=== PATIENT | male | born 1945 | race Caucasian/White ===

== ENCOUNTER 2016-12-20 11:55 | Inpatient (IN) | payer OTHER ==
[~2016-12-20] VITALS: Ht 170.2 cm; Wt 99.2 kg
[~2016-12-20 11:55] MED LIST: ALBU8.5H5 INH; AMLO10TA4 PO; ASPI325T4 PO; ATOR10TA PO; BECL8.7A6 INH; CETI10TA32 PO; CLON0.2T PO; DIVA125T2 PO; DIVA500T9 PO; GLIP10TA13 PO; LAMO100T5 PO; LISI-167 PO; MAGN400O4 PO; MECL25TA4 PO; METF10002 PO; METH479P PO; NPH,100V SQ; NPH,100V SQ-INSULIN; NPH,100V4 SQ; SENN1TAB94 PO; TEMA15CA6 PO; VARD10TA4 PO; ZIPR60CA3 PO
[2016-12-20] MEDS ORDERED: MECLIZINE CHEWABLE 25 MG TAB PO ONE (12:30)
[2016-12-20] MEDS ORDERED: SODIUM CHLORIDE 0.9% 1,000ML IVBOLUS ONE (12:30)
[2016-12-20] MEDS ORDERED: SODIUM CHLORIDE FLUSH 10ML SYR IVF ONE (12:30)
[2016-12-20] MEDS ORDERED: ONDANSETRON 2MG/ML, 2ML IVPush ONE (12:30)
[2016-12-20 12:43] LABS: HEMOGLOBIN 15.6 g/dL (13.7-18.0)
[2016-12-20] MEDS ORDERED: MECLIZINE CHEWABLE 25 MG TAB ONE (12:50)
[2016-12-20] MEDS ORDERED: ONDANSETRON 2MG/ML, 2ML ONE (12:50)
[2016-12-20 12:53] LABS: ASPARTATE AMINO TRANSFERASE 25 U/L (15-37); BLOOD UREA NITROGEN 15 mg/dL (7-18)
[2016-12-20 13:04] LABS: IS PT STATUS REG ER OR PRE ER? YES
[2016-12-20] MEDS ORDERED: INSU100C BC (13:56)
[2016-12-20] MEDS ORDERED: BISACODYL 10 MG SUPP PR PRN (14:00)
[2016-12-20] MEDS ORDERED: HYDROcodone/APAP 5/325 TABLET PO PRN (14:00)
[2016-12-20] MEDS ORDERED: ONDANSETRON 2MG/ML, 2ML IVP PRN (14:00)
[2016-12-20] MEDS ORDERED: DEXTROSE 50%, 50ML SYRINGE IVPush PRN (14:00)
[2016-12-20] MEDS ORDERED: POLYETHYLENE GLYCOL 17 GM PACKET PO PRN (14:00)
[2016-12-20] MEDS ORDERED: ACETAMINOPHEN 325 MG TABLET PO PRN (14:00)
[2016-12-20] MEDS ORDERED: PROMETHAZINE 25 MG/ML, 1ML IM PRN (14:00)
[2016-12-20] MEDS ORDERED: DEXTROSE 4 GM TAB.CHEW PO PRN (14:00)
[2016-12-20] MEDS ORDERED: GLUCAGON 1 MG IM PRN (14:00)
[2016-12-20] MEDS ORDERED: PHARMACY MAY ADJ FOR RENAL FX MC PRN (14:00)
[2016-12-20] MEDS ORDERED: TEMAZEPAM 15 MG CAPSULE PO PRN (14:30)
[2016-12-20] MEDS ORDERED: TEMAZEPAM MC SCH (15:30)
[2016-12-20] MEDS ORDERED: METFORMIN MC SCH (15:30)
[2016-12-20] MEDS: SODIUM CHLORIDE 0.9% 1,000 ML IV SCH ×2 (15:55→23:37)
[2016-12-20] MEDS: ENOXAPARIN 40 MG/0.4 ML SQ SCH (15:56)
[2016-12-20] MEDS: INSULIN ASPART 100 UNITS/ML, PEN SQ-INSULIN SCH ×2 (16:00→21:00)
[2016-12-20] MEDS: MECLIZINE CHEWABLE 25 MG TAB PO SCH ×2 (16:05→21:54)
[2016-12-20] MEDS: LAMOTRIGINE 100 MG TABLET PO SCH ×2 (16:05→21:58)
[2016-12-20 17:57] VITALS: BP 132/72
[2016-12-20 18:46] LABS: IS PT STATUS REG ER OR PRE ER? NO
[2016-12-20 19:23] VITALS: BP 123/70
[2016-12-20] MEDS: metFORMIN 500 MG TABLET PO SCH (21:00)
[2016-12-20] MEDS ORDERED: CETIRIZINE 10 MG TABLET PO SCH (21:00)
[2016-12-20] MEDS ORDERED: metFORMIN 500 MG TABLET PO SCH (21:00)
[2016-12-20] MEDS ORDERED: DIVALPROEX 500 MG TAB.ER.24H PO SCH (21:00)
[2016-12-20] MEDS ORDERED: ATORVASTATIN 10 MG TABLET PO SCH (21:00)
[2016-12-20] MEDS: SODIUM CHLORIDE FLUSH 10ML SYR IVF SCH (21:59)
[2016-12-21 00:44] LABS: IS PT STATUS REG ER OR PRE ER? NO
[2016-12-21 01:27] VITALS: BP 150/74
[2016-12-21 05:29] LABS: BLOOD UREA NITROGEN 19 mg/dL (7-18)
[2016-12-21 05:34] LABS: ASPARTATE AMINO TRANSFERASE 39 U/L (15-37)
[2016-12-21 06:05] LABS: HEMOGLOBIN 13.9 g/dL (13.7-18.0)
[2016-12-21] MEDS: INSULIN ASPART 100 UNITS/ML, PEN SQ-INSULIN SCH ×2 (07:00→11:00)
[2016-12-21 07:02] VITALS: BP_SYST 121; BP_SYST 133; BP_SYST 135; BP_DIAS 72; BP_DIAS 77
[2016-12-21] MEDS: MECLIZINE CHEWABLE 25 MG TAB PO SCH (07:38)
[2016-12-21] MEDS: LAMOTRIGINE 100 MG TABLET PO SCH (07:38)
[2016-12-21] MEDS: metFORMIN 500 MG TABLET PO SCH (07:38)
[2016-12-21] MEDS: SODIUM CHLORIDE FLUSH 10ML SYR IVF SCH (07:40)
[2016-12-21] MEDS ORDERED: LISINOPRIL 10 MG TABLET PO SCH (09:00)
[2016-12-21] MEDS ORDERED: ASPIRIN 325 MG TABLET PO SCH (09:00)
[2016-12-21] MEDS ORDERED: AMLODIPINE 5 MG TABLET PO SCH (09:00)
[2016-12-21] MEDS: SODIUM CHLORIDE 0.9% 1,000 ML IV SCH (12:00)
[2016-12-21 13:20] VITALS: BP_SYST 139; BP_SYST 147; BP_SYST 157; BP_DIAS 69; BP_DIAS 82
[2016-12-21] MEDS: ENOXAPARIN 40 MG/0.4 ML SQ SCH (14:00)
== END 2016-12-21 14:57 | disposition home or self-care (01) | DRG 74 ==
LOC: ED 13:27 → EDIP 13:29 → SUATTDRO 13:31 → ED 13:55 → 4EST 14:55 → DCLOUNGE 12-21 14:56
PROVIDERS: ADMIT Internal Medicine; ATTEND Internal Medicine
DX: G90.8 Other disorders of autonomic nervous system (principal); N17.9 Acute kidney failure, unspecified; F30.9 Manic episode, unspecified; D72.829 Elevated white blood cell count, unspecified; I10 Essential (primary) hypertension; E78.5 Hyperlipidemia, unspecified; G47.30 Sleep apnea, unspecified; J45.909 Unspecified asthma, uncomplicated; I12.9 Hypertensive chronic kidney disease with stage 1 through stage 4 chronic kidney disease, or unspecified chronic kidney disease; E11.22 Type 2 diabetes mellitus with diabetic chronic kidney disease; N18.9 Chronic kidney disease, unspecified; Z82.3 Family history of stroke; Z90.89 Acquired absence of other organs
CPT/HCPCS: 36415; 70551; 71010; 80053; 81003; 82962; 83880; 84443; 84484; 85025; 85610; 85730; 93005; 96361; 96374; J1650; J2405; J7030

== ENCOUNTER → 2017-02-23 | Outpatient (CLI) | payer OTHER ==
[~2017-02-23] MED LIST changes: +ACET-1600 PO; +AMLO10TA2 PO; +ASPI325T80 PO; +BISM262O20 PO; +CPAP; +DEXT4TAB PO; +DIPH25CA61 PO; +DIVA250T6 PO; +DOCU100C8 PO; +EPIN0.3P3 IM; +FAMO-79 PO; +FAMO40TA61 PO; +INSU100C BC; +INSU100C5 SQ-INSULIN; +LAMO100T PO; +MECL-76 PO; +METF500T4 PO; +PSYL0.527 PO; +REGADENOSON 0.4 MG/5 ML SYRINGE ONE; +TEMA7.5C PO; +[UNRECOGNIZED DRUG - OTHER] PO
== END | disposition home or self-care (01) ==
LOC: CFH 07:26
PROVIDERS: ATTEND Internal Medicine Cardiovascular Disease
DX: I25.9 Chronic ischemic heart disease, unspecified (principal); R94.31 Abnormal electrocardiogram [ECG] [EKG]
CPT/HCPCS: 78452; 93017; A9502; J2785

== ENCOUNTER 2017-03-30 09:15 | Observation (INO) | payer OTHER ==
[2017-03-29 10:24] LABS: BLOOD UREA NITROGEN 23 mg/dL (7-18)
[~2017-03-30] VITALS: Ht 170.2 cm; Wt 102.7 kg
[~2017-03-30 09:15] MED LIST changes: +DIVA-68 PO; +DIVA500T17 PO; -DIVA500T9 PO; +LOPE2TAB28 PO; -REGADENOSON 0.4 MG/5 ML SYRINGE ONE; +TEMA15CA PO
[2017-03-30 09:55] VITALS: BP 163/94
[2017-03-30] MEDS: SODIUM CHLORIDE 0.9% 1,000 ML IV SCH ×2 (10:16→20:00)
[2017-03-30] MEDS ORDERED: ASPIRIN 325 MG TABLET EC PO ONE (10:30)
[2017-03-30] MEDS ORDERED: BISACODYL 5 MG EC TABLET PO PRN (10:30)
[2017-03-30] MEDS ORDERED: BISACODYL 10 MG SUPP PR PRN (10:30)
[2017-03-30] MEDS ORDERED: ZOLPIDEM 5MG TABLET PO PRN (10:30)
[2017-03-30] MEDS ORDERED: ACETAMINOPHEN 325 MG TABLET PO PRN (10:30)
[2017-03-30] MEDS ORDERED: ONDANSETRON 2MG/ML, 2ML IVPush PRN (10:30)
[2017-03-30] MEDS ORDERED: MIDAZOLAM 1 MG/ML, 5ML ONE (10:46)
[2017-03-30] MEDS ORDERED: DIPHENHYDRAMINE 50 MG/ML, 1ML ONE (10:46)
[2017-03-30] MEDS ORDERED: LIDOCAINE 2%, 20ML ONE (10:46)
[2017-03-30] MEDS ORDERED: methylPREDNISolone SOD SUCC 125 MG/2 ML ONE (10:46)
[2017-03-30] MEDS ORDERED: FENTANYL PF 100 MCG/2ML ONE (10:46)
[2017-03-30] MEDS ORDERED: HEPARIN 1,000 UNITS/ML, 10ML ONE (12:11)
[2017-03-30] MEDS ORDERED: BIVALIRUDIN 250 MG ONE ×2 (12:11→13:09)
[2017-03-30] MEDS ORDERED: TICAGRELOR 90 MG TABLET ONE (12:11)
[2017-03-30] MEDS ORDERED: hydrALAzine 20 MG/ML, 1ML ONE (12:34)
[2017-03-30] MEDS ORDERED: NITROGLYCERIN 5 MG/ML, 10ML ONE (13:00)
[2017-03-30] MEDS ORDERED: LOPERAMIDE 2 MG CAPSULE PO PRN (14:30)
[2017-03-30] MEDS ORDERED: FAMOTIDINE 20 MG TABLET PO PRN (14:30)
[2017-03-30] MEDS ORDERED: ALBUTEROL SULFATE 2.5 MG/3 ML HHN PRN (14:30)
[2017-03-30] MEDS ORDERED: SENNA/DOCUSATE TABLET PO PRN (14:30)
[2017-03-30] MEDS: DOCUSATE 100 MG CAPSULE PO SCH ×2 (16:00→21:14)
[2017-03-30 16:04] VITALS: BP 136/72
[2017-03-30] MEDS ORDERED: morphine SULFATE 10 MG/ML, 1ML IVPush PRN (18:00)
[2017-03-30] MEDS: OXYcodone/APAP 5/325MG TABLET PO PRN (18:16)
[2017-03-30 19:05] VITALS: BP 142/65
[2017-03-30] MEDS ORDERED: CETIRIZINE 10 MG TABLET PO SCH (21:00)
[2017-03-30] MEDS ORDERED: TEMAZEPAM 15 MG CAPSULE PO SCH (21:00)
[2017-03-30] MEDS ORDERED: ATORVASTATIN 10 MG TABLET PO SCH (21:00)
[2017-03-30] MEDS ORDERED: DIVALPROEX 500 MG TAB.ER.24H PO SCH (21:00)
[2017-03-30] MEDS: PSYLLIUM PACKET PO SCH (21:14)
[2017-03-30] MEDS: TICAGRELOR 90 MG TABLET PO SCH (21:14)
[2017-03-30] MEDS: MECLIZINE CHEWABLE 25 MG TAB PO SCH (21:14)
[2017-03-30] MEDS: LAMOTRIGINE 100 MG TABLET PO SCH (21:14)
[2017-03-30] MEDS: INSULIN ASPART 100 UNITS/ML, PEN SQ-INSULIN SCH (23:31)
[2017-03-31] MEDS: OXYcodone/APAP 5/325MG TABLET PO PRN ×2 (01:10→09:33)
[2017-03-31 02:00] VITALS: BP 149/61
[2017-03-31] MEDS: SODIUM CHLORIDE 0.9% 1,000 ML IV SCH ×2 (02:40→09:20)
[2017-03-31 05:58] LABS: BLOOD UREA NITROGEN 20 mg/dL (7-18)
[2017-03-31] MEDS: INSULIN ASPART 100 UNITS/ML, PEN SQ-INSULIN SCH ×2 (07:00→11:00)
[2017-03-31 08:00] VITALS: BP 155/76
[2017-03-31] MEDS ORDERED: AMLODIPINE 5 MG TABLET PO SCH (09:00)
[2017-03-31] MEDS ORDERED: FLUTICASONE FUROATE 100MCG/INH INH SCH (09:00)
[2017-03-31] MEDS ORDERED: MULTIVITAMIN 1 TABLET PO SCH (09:00)
[2017-03-31] MEDS ORDERED: ASPIRIN 81 MG TABLET EC PO SCH (09:00)
[2017-03-31] MEDS ORDERED: LISINOPRIL 10 MG TABLET PO SCH (09:00)
[2017-03-31] MEDS: DOCUSATE 100 MG CAPSULE PO SCH (09:20)
[2017-03-31] MEDS: MECLIZINE CHEWABLE 25 MG TAB PO SCH (09:20)
[2017-03-31] MEDS: TICAGRELOR 90 MG TABLET PO SCH (09:20)
[2017-03-31] MEDS: PSYLLIUM PACKET PO SCH (09:21)
[2017-03-31] MEDS: LAMOTRIGINE 100 MG TABLET PO SCH (09:21)
[2017-03-31] MEDS ORDERED: MORPHINE SULFATE 4 MG/ML, 1ML IVPush ONE (09:30)
[2017-03-31] MEDS ORDERED: TICA90TA PO (14:07)
[2017-03-31] MEDS ORDERED: ASPI-621 PO (14:07)
== END 2017-03-31 16:50 | disposition home or self-care (01) ==
LOC: CACL 09:15 → 5SO 14:03 → CACL 22:06 → DCLOUNGE 03-31 15:53
PROVIDERS: ADMIT Internal Medicine Cardiovascular Disease; ATTEND Internal Medicine Cardiovascular Disease
DX: I25.10 Atherosclerotic heart disease of native coronary artery without angina pectoris (principal); E11.9 Type 2 diabetes mellitus without complications; E66.01 Morbid (severe) obesity due to excess calories; E78.5 Hyperlipidemia, unspecified; F31.9 Bipolar disorder, unspecified; G47.30 Sleep apnea, unspecified; I10 Essential (primary) hypertension; R94.31 Abnormal electrocardiogram [ECG] [EKG]; Z87.891 Personal history of nicotine dependence; Z79.4 Long term (current) use of insulin
CPT/HCPCS: 36415; 71020; 80048; 82040; 82962; 85014; 85018; 85025; 85610; 85730; 92920; 93458; 93571; 93926; 96372; 96374; 99156; 99157; C1724; C1725; C1760; C1769; C1874; C1887; C1894; C9602; G0378; J0360; J0583; J1200; J1644; J1815; J2250; J2930; J3010; J3490; Q9967

== ENCOUNTER 2019-04-17 10:40 | Outpatient (CLI) | payer MEDICARE ==
[~2019-04-17 10:40] MED LIST changes: -AMLO10TA2 PO; +AMLO10TA8 PO; +ASPI325T17 PO; -ASPI325T4 PO; +ASPI81TA45 PO; +DEXT-230 PO; -DEXT4TAB PO; +DIVA-59 PO; +DIVA-61 PO; -DIVA-68 PO; -DIVA250T6 PO; +DOCU100C33 PO; -DOCU100C8 PO; -MAGN400O4 PO; +MAGN400O7 PO; +METF500T17 PO; -METF500T4 PO; -NPH,100V4 SQ; +NPH,100V5 SQ; +TICA90TA PO
== END 2019-04-17 23:59 | disposition home or self-care (01) ==
LOC: CFH 10:40
PROVIDERS: ATTEND Internal Medicine Cardiovascular Disease
DX: I08.0 Rheumatic disorders of both mitral and aortic valves (principal); I11.9 Hypertensive heart disease without heart failure; E65 Localized adiposity; E78.5 Hyperlipidemia, unspecified
CPT/HCPCS: 93306